=== PATIENT | male | born 1950 | race Caucasian/White ===

== ENCOUNTER 2021-08-27 09:58 | Observation (INO) | payer MEDICARE ==
[2021-08-27 10:36] LABS: Hemoglobin 17.8 g/dL (14.0-18.0); Mean Corpuscular HGB CONC 32.6 g/dL (32.0-36.0); Mean Corpuscular Hemoglobin 29.4 pg (27.0-31.0); Mean Corpuscular Volume 90.3 fL (78.0-98.0); Platelet Count 150 thou/uL (130-400); RBC Distribution Width 12.2 % (11.5-14.5); Red Blood Cell (RBC) Count 6.07 mill/uL (4.70-6.10); White Blood Cell (WBC) Count 8.4 thou/uL (4.8-10.8)
[2021-08-27 10:54] LABS: Band 3 % (5-11); Lymphocytes 11 % (21-51); MDiff Complete? YES; Monocytes 10 % (0-10); Neutrophil 75 % (42-75); Platelet Morphology Comment Appears Adequate; RBC Morphology Normal; Reactive Lymphocytes 1 % (0-10)
[2021-08-27] MEDS ORDERED: Aspirin Chewable 81 MG TAB ONE (11:09)
[2021-08-27 11:31] LABS: Anion Gap 17 mmol/L (10-20); BUN (Urea Nitrogen) 23 mg/dL (8.4-25.7); Calc. Creatinine Clearance 0 mL/min (70-130); Carbon Dioxide 29 mmol/L (23-31); Chloride 97 mmol/L (98-107); Potassium 3.9 mmol/L (3.5-5.1); Sodium 139 mmol/L (136-145)
[2021-08-27 11:32] LABS: ALT (SGPT) 55 U/L (8-55); AST (SGOT) 69 U/L (5-34); Albumin 3.8 g/dL (3.4-4.8); Alkaline Phosphatase 54 U/L (40-110); Bilirubin, Total 1.4 mg/dL (0.2-1.2); Calcium 9.8 mg/dL (7.8-10.44); Globulin 4.4 g/dL (2.4-3.5); Glucose 106 mg/dL (80-115); Protein, Total 8.2 g/dL (5.8-8.1)
[2021-08-27 11:46] LABS: Magnesium 2.2 mg/dL (1.6-2.6)
[2021-08-27] MEDS ORDERED: traMADol HCl 50 MG TAB ONE (12:18)
[2021-08-27] MEDS ORDERED: Nitroglycerin 0.4 MG TAB (25 Tab Bottle) SL PRN (14:57)
[2021-08-27] MEDS ORDERED: Torsemide 20 MG TAB PO SCH (16:00)
[2021-08-27 16:31] LABS: Troponin I Less than 0.010 ng/mL (< 0.028)
[2021-08-27] MEDS ORDERED: traMADol HCl 50 MG TAB PO PRN (18:06)
[2021-08-27] MEDS ORDERED: HYDROcodone/Acetaminophen 7.5/325 mg Tablet PO PRN (18:06)
[2021-08-27 19:43] LABS: Troponin I Less than 0.010 ng/mL (< 0.028)
[2021-08-27 19:46] VITALS: BMI 32.1
[2021-08-27] MEDS ORDERED: FLU VACC QS2021-22(65YR UP)/PF 240 MCG/0.7 ML SYRINGE IM ONE (20:00)
[2021-08-27] MEDS ORDERED: Atorvastatin Calcium 40 MG TAB PO SCH (21:00)
[2021-08-28 05:32] LABS: ALT (SGPT) 52 U/L (8-55); AST (SGOT) 40 U/L (5-34); Albumin 3.6 g/dL (3.4-4.8); Alkaline Phosphatase 51 U/L (40-110); Anion Gap 14 mmol/L (10-20); BUN (Urea Nitrogen) 27 mg/dL (8.4-25.7); Bilirubin, Total 1.1 mg/dL (0.2-1.2); Calc. Creatinine Clearance 80 mL/min (70-130); Calcium 9.6 mg/dL (7.8-10.44); Carbon Dioxide 34 mmol/L (23-31); Cardiac Risk 3.6 (Less than 4.5); Chloride 98 mmol/L (98-107); Cholesterol 113 mg/dl (< 200 Desired); Glucose 89 mg/dL (80-115); HDL Cholesterol 31 mg/dL (>60 Neg Risk); LDL Cholesterol, Calculated 66 mg/dL; Potassium 3.5 mmol/L (3.5-5.1); Protein, Total 6.6 g/dL (5.8-8.1); Sodium 142 mmol/L (136-145); Triglycerides 79 mg/dL (Less than 150)
[2021-08-28] MEDS ORDERED: metFORMIN 500 MG TAB PO SCH (08:00)
[2021-08-28] MEDS ORDERED: Magnesium Oxide 250 MG TAB PO SCH ×2 (09:00)
[2021-08-28] MEDS ORDERED: Ubidecarenone 50 MG CAP PO SCH (09:00)
[2021-08-28] MEDS ORDERED: Non-Formulary Item 1 EACH (Magnesium [Magnesium] 250 MG Tablet) PO SCH (09:00)
[2021-08-28] MEDS ORDERED: Aspirin 81 mg Enteric Coated Tablet PO SCH (09:00)
[2021-08-28] MEDS ORDERED: Torsemide 20 MG TAB PO SCH (09:00)
[2021-08-28] MEDS ORDERED: Communication Order-Pharmacy FS SCH (09:30)
[2021-08-28 11:23] VITALS: BP 126/74; TEMP 97.9
[2021-08-28 12:36] LABS: SARS-CoV-2 PCR by NAA DETECTED (NotDetected)
[2021-08-29] MEDS ORDERED: Sodium Chloride 0.9% 1,000 ML IV SCH (06:00)
== END 2021-08-28 14:48 | disposition home or self-care (01) ==
LOC: ERS 09:58 → ERHOLD 14:57 → 2NO 18:33
PROVIDERS: ADMIT Internal Medicine; ATTEND Internal Medicine
DX: I24.8 Other forms of acute ischemic heart disease (principal); U07.1 COVID-19; I25.10 Atherosclerotic heart disease of native coronary artery without angina pectoris; I25.2 Old myocardial infarction; I11.0 Hypertensive heart disease with heart failure; I50.30 Unspecified diastolic (congestive) heart failure; E11.9 Type 2 diabetes mellitus without complications; E78.5 Hyperlipidemia, unspecified; I48.20 Chronic atrial fibrillation, unspecified; G89.29 Other chronic pain; M54.9 Dorsalgia, unspecified; R74.01 Elevation of levels of liver transaminase levels; E66.9 Obesity, unspecified; Z68.32 Body mass index [BMI] 32.0-32.9, adult; Z79.82 Long term (current) use of aspirin; Z79.84 Long term (current) use of oral hypoglycemic drugs; Z79.899 Other long term (current) drug therapy; Z95.1 Presence of aortocoronary bypass graft; Z95.5 Presence of coronary angioplasty implant and graft; Z87.820 Personal history of traumatic brain injury; Z98.890 Other specified postprocedural states
CPT/HCPCS: 71045; 80053 ×2; 80061; 82962 ×2; 83735; 83880; 84484 ×2; 85025; 86140; 93005; U0003; U0005; 36415; 36416; G0378

== ENCOUNTER → 2021-10-02 | Day surgery (SDC) | payer MEDICARE ==
[2021-10-01 10:20] VITALS: BMI 32.3
[~2021-10-02] MED LIST: Lidocaine 1% (PF) 30 ML VIAL ONE
== END ==
LOC: SDC 06:01
PROVIDERS: ATTEND Internal Medicine Cardiovascular Disease
DX: I25.118 Atherosclerotic heart disease of native coronary artery with other forms of angina pectoris (principal); U07.1 COVID-19; E78.00 Pure hypercholesterolemia, unspecified; I11.0 Hypertensive heart disease with heart failure; I50.32 Chronic diastolic (congestive) heart failure; I48.11 Longstanding persistent atrial fibrillation; E11.9 Type 2 diabetes mellitus without complications; E78.5 Hyperlipidemia, unspecified; Z53.09 Procedure and treatment not carried out because of other contraindication; Z79.02 Long term (current) use of antithrombotics/antiplatelets; Z79.82 Long term (current) use of aspirin; Z79.84 Long term (current) use of oral hypoglycemic drugs; Z79.899 Other long term (current) drug therapy; Z88.8 Allergy status to other drugs, medicaments and biological substances; Z95.1 Presence of aortocoronary bypass graft
CPT/HCPCS: J2001

== ENCOUNTER 2021-10-12 05:30 | Day surgery (SDC) | payer MEDICARE ==
[2021-10-11 12:53] VITALS: BMI 32.3
[2021-10-12] MEDS ORDERED: Lidocaine 1% (PF) 30 ML VIAL ONE ×2 (06:37→06:52)
[2021-10-12] MEDS ORDERED: Heparin 0 ML ONE (06:37)
[2021-10-12] MEDS ORDERED: Fentanyl 100 MCG/2 ML VIAL ONE ×2 (07:17→12:37)
[2021-10-12] MEDS ORDERED: Midazolam HCl 2 mg/2 ml Vial ONE (07:17)
[2021-10-12] MEDS ORDERED: Heparin 10,000 UNITS/ 10 ML VIAL ONE ×2 (07:59→08:02)
[2021-10-12] MEDS ORDERED: Atropine Sulfate 1 mg/10 ml Syringe ONE (08:02)
[2021-10-12] MEDS ORDERED: Ondansetron PF 4 MG/2 ML Vial ONE (08:02)
[2021-10-12] MEDS ORDERED: Nitroglycerin 100MG/250ML BOT 250 ML ONE (08:04)
[2021-10-12] MEDS ORDERED: Aspirin Chewable 81 MG TAB ONE (08:11)
[2021-10-12] MEDS ORDERED: Clopidogrel Bisulfate 300 MG TAB ONE (08:41)
[2021-10-12] MEDS ORDERED: traMADol HCl 50 MG TAB ONE ×2 (11:17→17:01)
[2021-10-12] MEDS ORDERED: traMADol HCl 50 MG TAB PO PRN (11:56)
[2021-10-12] MEDS ORDERED: Iopamidol 370 76% 50 ML VIAL FS ONE (12:00)
[2021-10-12] MEDS ORDERED: Iopamidol 370 76% 100 ML VIAL ONE (12:00)
[2021-10-12] MEDS ORDERED: Sodium Chloride 0.9% 1,000 ML IV SCH (12:00)
[2021-10-12] MEDS ORDERED: Sodium Chloride 0.9% 250 ML 250 ML IVPB SCH (13:15)
[2021-10-12] MEDS ORDERED: Fentanyl 100 MCG/2 ML VIAL SLOW IVP SCH (13:15)
[2021-10-13] MEDS ORDERED: Clopidogrel Bisulfate 75 MG TAB PO SCH (09:00)
[2021-10-13] MEDS ORDERED: Aspirin Chewable 81 MG TAB PO SCH (09:00)
== END 2021-10-12 20:42 | disposition home or self-care (01) ==
LOC: SDC 05:30
PROVIDERS: ATTEND Internal Medicine Cardiovascular Disease
PROC: 027034Z Dilation of Coronary Artery, One Artery with Drug-eluting Intraluminal Device, Percutaneous Approach (ICD-10-PCS; principal; 2021-10-12)
PROC: 4A023N7 Measurement of Cardiac Sampling and Pressure, Left Heart, Percutaneous Approach (ICD-10-PCS; 2021-10-12)
PROC: B2111ZZ Fluoroscopy of Multiple Coronary Arteries using Low Osmolar Contrast (ICD-10-PCS; 2021-10-12)
PROC: B2181ZZ Fluoroscopy of Left Internal Mammary Bypass Graft using Low Osmolar Contrast (ICD-10-PCS; 2021-10-12)
DX: I25.118 Atherosclerotic heart disease of native coronary artery with other forms of angina pectoris (principal); I25.84 Coronary atherosclerosis due to calcified coronary lesion; I48.0 Paroxysmal atrial fibrillation; I11.0 Hypertensive heart disease with heart failure; I50.32 Chronic diastolic (congestive) heart failure; E78.00 Pure hypercholesterolemia, unspecified; E11.9 Type 2 diabetes mellitus without complications; E78.5 Hyperlipidemia, unspecified; Z79.02 Long term (current) use of antithrombotics/antiplatelets; Z79.82 Long term (current) use of aspirin; Z79.84 Long term (current) use of oral hypoglycemic drugs; Z79.899 Other long term (current) drug therapy; Z88.8 Allergy status to other drugs, medicaments and biological substances; Z95.1 Presence of aortocoronary bypass graft
CPT/HCPCS: 85347 ×2; 93005; 93459; C1769; C1874; C9600; 92928; 99152; 99153; J0461; J1644; J2001; J2250; J2405; J3010; Q9967

== ENCOUNTER 2022-12-17 05:53 | Day surgery (SDC) | payer MEDICARE ==
[2022-12-16 14:22] VITALS: BMI 34.5
[2022-12-17] MEDS ORDERED: GLYCOPYRROLATE/PF 0.2 MG/ML VIAL ONE (07:27)
[2022-12-17] MEDS ORDERED: Midazolam HCl 2 mg/2 ml Vial ONE (07:27)
[2022-12-17] MEDS ORDERED: Ketamine 50 MG/ML (10ML VIAL) ONE (07:40)
[2022-12-17] MEDS ORDERED: PROPOFOL 20 ML ONE (07:41)
[2022-12-17 07:59] LABS: #Basophils 0.1 thou/uL (0.0-0.2); #Eosinphils 0.3 thou/uL (0.0-0.7); #Lymphocytes 1.4 thou/uL (1.20-3.40); #Monocytes 0.7 thou/uL (0.11-0.59); #Neutrophils 6.6 thou/uL (1.40-6.50); %Basophils 0.8 % (0.0-1.0); %Eosinophils 3.3 % (0.0-10.0); %Lymphocytes 15.9 % (21.0-51.0); %Monocytes 7.5 % (0.0-10.0); %Neutrophils 72.6 % (42.0-75.0); Hemoglobin 15.5 g/dL (14.0-18.0); Mean Corpuscular HGB CONC 33.9 g/dL (32.0-36.0); Mean Corpuscular Volume 94.2 fl (78.0-98.0); Mean Platelet Volume 8.4 fL (7.4-10.4); Platelet Count 139 10x3/uL (130-400); RBC Distribution Width 12.4 % (11.5-14.5); Red Blood Cell (RBC) Count 4.84 mill/uL (4.70-6.10)
[2022-12-17 08:18] LABS: Anion Gap 10 mmol/L (10-20); BUN (Urea Nitrogen) 16 mg/dL (8.4-25.7); Calc. Creatinine Clearance 94 mL/min (70-130); Calcium 9.4 mg/dL (7.8-10.44); Carbon Dioxide 29 mmol/L (23-31); Chloride 103 mmol/L (98-107); Estimated GFR 73; Glucose 92 mg/dL (83-110); Potassium 3.9 mmol/L (3.5-5.1); Sodium 138 mmol/L (136-145)
== END 2022-12-17 09:28 | disposition home or self-care (01) ==
LOC: SDC 05:53
PROVIDERS: ATTEND Internal Medicine Cardiovascular Disease
PROC: B246ZZ4 Ultrasonography of Right and Left Heart, Transesophageal (ICD-10-PCS; principal; 2022-12-17)
DX: I48.21 Permanent atrial fibrillation (principal); I11.0 Hypertensive heart disease with heart failure; I50.32 Chronic diastolic (congestive) heart failure; I25.10 Atherosclerotic heart disease of native coronary artery without angina pectoris; E78.00 Pure hypercholesterolemia, unspecified; E11.9 Type 2 diabetes mellitus without complications; Z79.02 Long term (current) use of antithrombotics/antiplatelets; Z79.82 Long term (current) use of aspirin; Z79.84 Long term (current) use of oral hypoglycemic drugs; Z79.85 Long-term (current) use of injectable non-insulin antidiabetic drugs; Z79.899 Other long term (current) drug therapy; Z88.8 Allergy status to other drugs, medicaments and biological substances; Z95.1 Presence of aortocoronary bypass graft; Z95.818 Presence of other cardiac implants and grafts
CPT/HCPCS: 80048; 85025; 93312; J3490; 36415; J2250; J2704